=== PATIENT | female | born 1990 | race Caucasian/White ===

== ENCOUNTER 2017-08-15 12:49 | Emergency (ER) | payer OTHER ==
[~2017-08-15] VITALS: Ht 167.6 cm; Wt 184.8 kg
[2017-08-15 13:40] LABS: HEMATOCRIT 43.7 % (36.0-46.0); HEMOGLOBIN 14.6 G/DL (11.9-15.5); MCH 26.7 PG (29.0-34.0); MCHC 33.4 G/DL (30.0-36.0); MCV 79.9 FL (83-99); PLATELET COUNT 354 K/uL (156-360); RBC DIS.WIDTH-CV 14.2 % (11.8-14.6); RBC DIS.WIDTH-SD 41.1 % (39-53); RED BLOOD COUNT 5.47 M/uL (3.80-5.20); WHITE BLOOD COUNT 12.2 K/uL (4.1-10.2)
[2017-08-15 13:58] LABS: ALBUMIN 3.9 g/dL (3.2-4.8)
[2017-08-15 13:59] LABS: CHLORIDE 102 mEq/L (99-109); POTASSIUM 4.1 mEq/L (3.7-5.4); SODIUM 135 mEq/L (136-147)
[2017-08-15 14:01] LABS: GLUCOSE 158 mg/dL (70-99); TOTAL PROTEIN 7.6 g/dL (6.4-8.3)
[2017-08-15 14:03] LABS: TOTAL BILIRUBIN 0.4 mg/dL (0.0-1.0)
[2017-08-15 14:04] LABS: ALKALINE PHOSPHATASE 87 IU/L (3-129)
[2017-08-15 14:05] LABS: CREATININE 0.8 mg/dL (0.6-1.3); GFR ESTIMATE (CALCULATED) > 59 mL/min/
[2017-08-15 14:06] LABS: AST (GOT) 17 IU/L (2-34); UREA NITROGEN (BUN) 7 mg/dL (9-23)
[2017-08-15 14:08] LABS: ALT (GPT) 24 IU/L (3-49)
[2017-08-15 14:14] LABS: QUANTITATIVE HCG < 4.0 MIU/ML
[2017-08-15 14:42] LABS: APPEARANCE SL.HAZY ((CLEAR)); BILIRUBIN NEGATIVE; BLOOD NEGATIVE; COLOR YELLOW ((YELLOW)); GLUCOSE (STRIP) NEGATIVE; KETONES NEGATIVE; LEUKOCYTES SMALL; NITRITE NEGATIVE; PROTEIN (STRIP) NEGATIVE; SPECIFIC GRAVITY 1.026 (1.000-1.030); UROBILINOGEN 0.2 MG/DL (0.2-1.0)
[2017-08-15 14:47] LABS: BACTERIA RARE /HPF; EPITHELIAL CELLS 1+ /HPF; MUCUS TRACE /LPF; UCUL ADDED? YES
[2017-08-15] MEDS ORDERED: KEFLEX500 MG PO (16:23)
[2017-08-15] MEDS ORDERED: ZOFRAN ODT4 MG PO (16:54)
[2017-08-15 17:00] VITALS: BP 160/99
[2017-08-15 17:36] LABS: SOURCE SWAB
== END 2017-08-15 17:00 | disposition home or self-care (01) ==
LOC: RME 12:49 → EME 12:49 → RME 17:00
PROVIDERS: Physician Assistant Medical
DX: N39.0 Urinary tract infection, site not specified (principal); R73.03 Prediabetes; Z87.891 Personal history of nicotine dependence; Z87.39 Personal history of other diseases of the musculoskeletal system and connective tissue
CPT/HCPCS: 74018; 80053; 81003; 84702; 85027; 87086; 87210; 87491; 87591; 99281; 99284